=== PATIENT | female | born 1955 | race Caucasian/White ===

== ENCOUNTER 2020-04-06 06:09 | Emergency (ER) | payer BC, OTHER ==
[~2020-04-06] VITALS: Ht 160 cm; Wt 89.8 kg
[~2020-04-06 06:09] MED LIST: ALBUTEROL INH IH; AMITRIPTYLINE PO; BELVIQ10 MG PO; CALCIUM 500 +1 EAC5 PO; CLARITIN10 MG PO; COUMADIN 2 MG TA2 M1 PO; GLUCOPHAGE XR750 MG PO; HYDROCODONE-AP1 EAC6 PO; IBUPROFEN 600600 M1 PO; LEVOTHYROXINE 0.1 MG PO; LEXAPRO PO; MEDROLDOSEPACK PO; MOBIC15 MG PO; NAPROSYN500 MG PO; NORCO 5-325 TA1 EACH PO; OXYCONTIN10 M1 PO; PERCOCET 5-3251 EACH PO; PRILOSEC 20 MG20 MG PO; PRILOSEC40 MG PO; SANCTURA XR60 M1 PO; SYNTHROID PO; TIZANIDINE PO
[2020-04-06 07:37] LABS: CALCIUM 9.1 mg/dL (8.5-10.1); CREATININE 0.8 mg/dL (0.6-1.0); POTASSIUM 3.7 mmol/L (3.5-5.1)
[2020-04-06 07:42] LABS: ALBUMIN 3.6 g/dL (3.4-5.0); TOTAL BILIRUBIN 0.9 mg/dL (0.2-1.0); TOTAL PROTEIN 7.9 g/dL (6.4-8.2)
[2020-04-06 08:17] LABS: URINE BLOOD NEGATIVE (Negative); URINE CLARITY CLEAR; URINE COLOR OTHER; URINE GLUCOSE-RANDOM* NEGATIVE (Negative); URINE KETONES 1+ (Negative); URINE PROTEIN (DIPSTICK) TRACE (Negative); URINE SPECIFIC GRAVITY >= 1.030 (1.005-1.035)
[2020-04-06 08:20] LABS: URINE LEUKOCYTES-REFLEX 1+ (Negative); URINE NITRITE-REFLEX POSITIVE (Negative)
[2020-04-06 08:21] LABS: ICTOTEST (BILI CONFIRMATORY) Negative (Negative); URINE BILIRUBIN NEGATIVE (Negative)
[2020-04-06 08:47] LABS: CALCIUM OXALATE 0-3 Few /LPF (None Seen); HYALINE CASTS 0-3 Few /LPF (None Seen); SQUAMOUS None Seen /LPF (0-3); URINE WBC-REFLEX 6-15 Few /HPF (0-5)
[2020-04-06 08:48] LABS: URINE RBC None Seen /HPF (0-2)
[2020-04-06 09:11] LABS: ABSOLUTE NEUTROPHILS 13.1 thou/uL (1.4-8.2); EOSINOPHILS 0.6 % (0.0-3.0); HEMATOCRIT 43.4 % (37.0-47.0); HEMOGLOBIN 14.2 gm/dL (12.0-15.0); MCH 30.4 pg (26.0-34.0); MCHC 32.8 g/dL (28.0-37.0); MCV 92.7 fL (80.0-100.0); PLATELET COUNT 272 thou/uL (150-400); POLYS 85.4 % (36.0-66.0); RBC 4.68 mil/uL (4.20-5.00); RDW 15.2 % (10.5-14.5); WBC 15.4 thou/uL (4.0-11.0)
[2020-04-06] MEDS ORDERED: KEFLEX500 M1 PO (10:32)
[2020-04-06 10:43] VITALS: BP 127/75
== END 2020-04-06 10:43 | disposition home or self-care (01) ==
LOC: ER 06:09
PROVIDERS: Emergency Medicine
DX: N39.0 Urinary tract infection, site not specified (principal); E03.9 Hypothyroidism, unspecified; K21.9 Gastro-esophageal reflux disease without esophagitis; Z90.710 Acquired absence of both cervix and uterus; Z90.89 Acquired absence of other organs; Z79.899 Other long term (current) drug therapy; Z90.49 Acquired absence of other specified parts of digestive tract